=== PATIENT | male | born 1975 | race Caucasian/White ===

== ENCOUNTER 2018-09-08 15:14 | Emergency (ER) | payer SELFPAY ==
[~2018-09-08] VITALS: Ht 188 cm; Wt 124.3 kg
[~2018-09-08 15:14] MED LIST: AZTH250C PO; BENZ100C18 PO; CEFD300C3 PO; CYCL10TA9 PO; HYDR-3714 PO; METH4TAB PO; NAPR-243 PO; RT-ALBUINH IH; TRM50T PO
--- OUTSIDE RECORDS SUMMARY | 2018-09-08 15:19 | XMS REPORT | Continuity of Care Document ---
Author Author [facility] Address Unknown Phone Unavailable Allergies Active Description Code Type Severity Reaction Onset Reported/Identified Relationship to Patient Clinical Status Yes Penicillins Drug Allergy N/A N/A 07/23/2013 Yes Penicillins [id number] Drug Allergy Unknown N/A 12/18/2013 Medications There is no data. Problems Date Dx Coded Attending Type Code Diagnosis Diagnosed By 07/23/2013 CHINA COHEN DO 338.29 PAIN - CHRONIC 07/23/2013 CHINA COHEN DO 796.2 ELEVATED BLOOD PRESSURE READING WITHOUT DIAGNOSIS OF HYPERTENSION 07/23/2013 ALICE ROMERO MD 338.29 PAIN - CHRONIC 07/23/2013 ALICE ROMERO MD 796.2 ELEVATED BLOOD PRESSURE READING WITHOUT DIAGNOSIS OF HYPERTENSION 07/23/2013 ALICE ROMERO MD 338.29 PAIN - CHRONIC 07/23/2013 ALICE ROMERO MD 796.2 ELEVATED BLOOD PRESSURE READING WITHOUT DIAGNOSIS OF HYPERTENSION 07/23/2013 CHINA COHEN DO 338.29 PAIN - CHRONIC 07/23/2013 CHINA COHEN DO 796.2 ELEVATED BLOOD PRESSURE READING WITHOUT DIAGNOSIS OF HYPERTENSION 09/10/2013 ALICE ROMERO MD N 723.1 PAIN NECK 09/10/2013 ALICE ROMERO MD 786.2 COUGH 09/10/2013 CHINA COHEN DO 723.1 PAIN NECK 09/10/2013 CHINA COHEN DO 786.2 COUGH 12/18/2013 KRIS MURDOCK MD Ot 288.60 LEUKOCYTOSIS, UNSPECIFIED 12/18/2013 KRIS MURDOCK MD Ot 346.90 MIGRAINE UNSPECIFIED W/O INTRACT MGRN W/ 12/18/2013 KRIS MURDOCK MD Ot 462 ACUTE PHARYNGITIS 12/18/2013 KRIS MURDOCK MD Ot 784.0 HEADACHE 02/03/2014 EMI PICHARDO DO Ot 724.2 LUMBAGO 02/03/2014 EMI PICHARDO DO Ot 724.3 SCIATICA 12/05/2015 EMI PICHARDO DO Ot F12.10 CANNABIS ABUSE, UNCOMPLICATED 12/05/2015 EMI PICHARDO DO Ot F17.210 NICOTINE DEPENDENCE, CIGARETTES, UNCOMPL 12/05/2015 EMI PICHARDO DO Ot J40 BRONCHITIS, NOT SPECIFIED ACUTE OR CH 12/05/2015 EMI PICHARDO DO Ot R91.8 OTHER NONSPECIFIC ABNORMAL FINDING OF MILADIS 12/06/2015 EMI PICHARDO DO Ot F12.10 12/06/2015 EMI PICHARDO DO Ot F17.210 12/06/2015 EMI PICHARDO DO Ot J40 12/06/2015 EMI PICHARDO DO Ot R91.8 02/23/2016 ALICE ROMERO MD Ot 786.05 SHORTNESS OF BREATH 02/23/2016 CORINA CLAYTON MD Ot 721.3 LUMBOSACRAL SPONDYLOSIS 02/23/2016 CORINA CLAYTON MD Ot 722.83 POSTLAMINECT SYND-LUMBAR Procedures Code Description [place] [address] ROUTINE VENIPUNCTURE 09/10/2013 60535 XRAY CERVICAL SPINE, 2 OR 3 VIEWS 09/10/2013 35049 XRAY THORACIC SPINE 2 VIEWS 09/10/2013 88716 LIPID PANEL 09/10/2013 02093 URINE DRUG SCREEN (IN-HOUSE ) 09/10/2013 99313 PULMONARY FUNCTION TEST 11/18/2013 Results There is no data. Encounters ACCT No. Visit Date/Time Discharge Status Pt. Type Provider Facility Loc./Unit Complaint [id number] 11/18/2013 08:50:00 11/18/2013 23:59:59 CLS Outpatient CHINA COHEN DO [id number] 09/10/2013 08:37:00 09/10/2013 23:59:59 CLS Outpatient ALICE ROMERO MD [id number] 08/19/2013 10:48:00 08/19/2013 23:59:59 CLS Outpatient ALICE ROMERO MD [id number] 07/23/2013 11:04:00 07/23/2013 23:59:59 CLS Outpatient CHINA COHEN DO [id number] 10/29/2017 12:08:00 10/29/2017 23:59:59 CLS Preadmit GUILHERME AMANDA, LYNN De Oliveira [facility] RAD SUPERIOR GLENOID LABRUM LESION OF RIGHT SHOULDER [id number] 12/05/2015 09:57:00 12/05/2015 12:24:00 DIS Emergency EMI PICHARDO DO [facility] ER CHEST PAIN [id number] 05/31/2014 08:52:00 05/31/2014 23:59:59 CLS Outpatient FORREST AMANDA, CORINA Herndon [facility] RAD [id number] 02/03/2014 12:12:00 02/03/2014 18:13:00 DIS Emergency DUNLAP EMI MCCRACKEN [facility] ER [id number] 12/18/2013 05:51:00 12/18/2013 07:30:00 DIS Emergency MATHIEU AMANDA, KRIS Carey [facility] ER [id number] 12/02/2013 09:30:00 12/02/2013 23:59:59 CLS Outpatient HEATHER AMANDA, ALICE Marinelli [facility] RT
[2018-09-08 15:32] LABS: BASOPHILS % (AUTO) 0 % (0-10); EOSINOPHILS # (AUTO) 0.1 10^3/uL (0.0-0.3); EOSINOPHILS % (AUTO) 1 % (0-10); HEMATOCRIT 44 % (40-54); HEMOGLOBIN 14.7 G/DL (13.3-17.7); LYMPHOCYTES # (AUTO) 3.4 X 10^3 (1.0-4.0); LYMPHOCYTES % (AUTO) 33 % (12-44); MEAN CORPUSCULAR HEMOGLOBIN 30 PG (25-34); MEAN CORPUSCULAR HGB CONC 34 G/DL (32-36); MEAN CORPUSCULAR VOLUME 88 FL (80-99); MEAN PLATELET VOLUME 10.5 FL (7.4-10.4); MONOCYTES # (AUTO) 0.9 X 10^3 (0.0-1.0); MONOCYTES % (AUTO) 9 % (0-12); NEUTROPHILS # (AUTO) 5.8 X 10^3 (1.8-7.8); NEUTROPHILS % (AUTO) 56 % (42-75); PLATELET COUNT 330 10^3/uL (130-400); RED BLOOD COUNT 4.95 10^6/uL (4.35-5.85); RED CELL DISTRIBUTION WIDTH 14.4 % (10.0-14.5); WHITE BLOOD COUNT 10.3 10^3/uL (4.3-11.0)
--- NOTE | 2018-09-08 15:45 | Diagnostic Imaging Report ---
INDICATION: Coughing and chest pain. TIME OF EXAMINATION: 4:01 PM. COMPARISON: Correlation is made with the prior study of 12/05/2015. FINDINGS: The heart size is normal. The pulmonary vascularity is unremarkable. The lungs are clear. No infiltrate, effusion, or pneumothorax is detected. IMPRESSION: No acute cardiopulmonary process is detected. Dictated by: Dictated on workstation # [id number]
[2018-09-08 16:00] LABS: ALANINE AMINOTRANSFERASE 21 U/L (0-55); ALBUMIN 4.4 GM/DL (3.2-4.5); ALKALINE PHOSPHATASE 110 U/L (40-136); BILIRUBIN,TOTAL 0.4 MG/DL (0.1-1.0); BUN/CREATININE RATIO 11; CALCIUM 10.1 MG/DL (8.5-10.1); CARBON DIOXIDE 23 MMOL/L (21-32); CHLORIDE 107 MMOL/L (98-107); CREATININE SERUM 0.94 MG/DL (0.60-1.30); GFR ESTIMATED > 60; GLUCOSE 89 MG/DL (70-105); MAGNESIUM 2.5 MG/DL (1.8-2.4); POTASSIUM 4.1 MMOL/L (3.6-5.0); SODIUM 142 MMOL/L (135-145); TOTAL PROTEIN 7.9 GM/DL (6.4-8.2)
[2018-09-08] MEDS ORDERED: LORazepam INJ 2 MG/ML (ATIVAN) VIAL IVP PRN (16:15)
--- NOTE | 2018-09-08 16:20 | ED Respiratory ---
General Chief Complaint: Respiratory Problems Stated Complaint: SOB Nursing Triage Note: PT ARRIVED PER [facility], PT CO OF SOB AND HX OF ASTHMA. PT PICKED UP AT [facility]. PT CO OF SOA FOR 1 WEEK HAS PROD COUGH. IV #[address] W NS BY EMS INFUSING, PT RECIEVED 20MG OF DECADRON IV BY EMS Source: patient Exam Limitations: no limitations History of Present Illness Date Seen by Provider: Sep 08, 2018 Time Seen by Provider: 15:25 Initial Comments Patient is a 43-year-old male who was brought to the emergency room by [facility]. They were called to the [facility] urgent care for shortness of breath. He received a albuterol treatment at the clinic and 20 mg of IV Decadron in route to the emergency room. On arrival he is clear to auscultation. He reports that he's had a cough and congestion for the past 2 weeks is causing shortness of breath. He is in no respiratory distress on arrival to the emergency room. Timing/Duration: week (2) Prior Episodes/Possible Cause: no prior episodes Modifying Factors: Improves With Albuterol Nebulizer Associated Symptoms: cough, fever/chills, nasal congestion, nasal drainage, shortness of breath Allergies and Home Medications Allergies Coded Allergies: Penicillins (Unverified Allergy, Unknown, 12/18/13) Home Medications Albuterol Sulfate 8.5 Gm Hfa.aer.ad, 2 PUFF IH Q4H Prescribed by: EMI PICHARDO on 12/05/15 1200 Azithromycin 250 Mg Tablet, 250 MG PO UD TAKE 2 TABLETS TODAY, THEN TAKE 1 TABLET DAILY FOR 4 MORE DAYS Prescribed by: MICHAELA DOLL on 09/08/18 1635 Benzonatate 100 Mg Capsule, 1-2 TAB PO TID Prescribed by: EMI PICHARDO on 12/05/15 1200 Cefdinir 300 Mg Capsule, 300 MG PO BID Prescribed by: EMI PICHARDO on 12/05/15 1200 Methylprednisolone 4 Mg Tab.ds.pk, 4 MG PO UD Prescribed by: EMI PICHARDO on 12/05/15 1200 Promethazine HCl/Codeine 5 Ml Syrup, 5 ML PO Q4H PRN for COUGH Prescribed by: MICHAELA DOLL on 09/08/18 1635 Patient Home Medication List Home Medication List Reviewed: Yes Review of Systems Review of Systems Constitutional: no symptoms reported, see HPI Respiratory: see HPI, cough, short of breath All Other Systems Reviewed Negative Unless Noted: Yes Past Zrkljkw-Iayizr-Yrbzvr Hx Past Med/Social Hx: Reviewed Nursing Past Med/Soc Hx Patient Social History Alcohol Use: Denies Use Recreational Drug Use: Yes (POT) Smoking Status: Current Everyday Smoker Type Used: Cigarettes Recent Foreign Travel: No Contact w/Someone Who Travel: No Recent Infectious Disease Expo: No Recent Hopitalizations: No Past Medical History Surgeries: Yes (BACK SURGERY X 2, HERNIA REPAIR CHILD) Abdominal, Orthopedic Respiratory: Yes COPD Cardiac: No Neurological: No Reproductive Disorders: No Sexually Transmitted Disease: No Gastrointestinal: No Musculoskeletal: No Endocrine: No Cancer: No Psychosocial: No Integumentary: No Blood Disorders: No Family Medical History Reviewed Nursing Family Hx Physical Exam Vital Signs - First Documented 09/08/18 15:19 Temp 98.3 Pulse 71 Resp 40 B/P (MAP) 126/83 (97) Pulse Ox 100 O2 Delivery Room Air Capillary Refill : Less Than 3 Seconds Height: 6'2.00" Weight: 274lbs. oz. 124.420405al; 34.02 BMI Method:Stated General Appearance: WD/WN, no apparent distress Eyes: Bilateral Eye Normal Inspection, Bilateral Eye PERRL, Bilateral Eye EOMI HEENT: PERRL/EOMI, normal ENT inspection, TMs normal, pharynx normal Respiratory: chest non-tender, lungs clear, normal breath sounds, no respiratory distress, no accessory muscle use Cardiovascular: normal peripheral pulses, regular rate, rhythm, no edema, no gallop, no JVD, no murmur Gastrointestinal: normal bowel sounds, non tender, soft, no organomegaly, no pulsatile mass Extremities: normal capillary refill Neurologic/Psychiatric: alert, normal mood/affect, oriented x 3 Skin: normal color, warm/dry Progress/Results/Core Measures Suspected Sepsis Recent Fever Within 48 Hours: No Infection Criteria Present: None New/Unexplained Altered Menta: No Sepsis Screen: No Definite Risk SIRS Temperature:98.3 Pulse: 71 Respiratory Rate: 40 Laboratory Tests 09/08/18 15:19: White Blood Count 10.3 Blood Pressure 126 /83 Mean: 97 Laboratory Tests 09/08/18 15:19: Creatinine 0.94, Platelet Count 330, Total Bilirubin 0.4 Results/Orders Lab Results Laboratory Tests Test 09/08/18 15:19 Range/Units White Blood Count 10.3 4.3-11.0 10^3/uL Red Blood Count 4.95 4.35-5.85 10^6/uL Hemoglobin 14.7 13.3-17.7 G/DL Hematocrit 44 40-54 % Mean Corpuscular Volume 88 80-99 FL Mean Corpuscular Hemoglobin 30 25-34 PG Mean Corpuscular Hemoglobin Concent 34 32-36 G/DL Red Cell Distribution Width 14.4 10.0-14.5 % Platelet Count 330 130-400 10^3/uL Mean Platelet Volume 10.5 H 7.4-10.4 FL Neutrophils (%) (Auto) 56 42-75 % Lymphocytes (%) (Auto) 33 12-44 % Monocytes (%) (Auto) 9 0-12 % Eosinophils (%) (Auto) 1 0-10 % Basophils (%) (Auto) 0 0-10 % Neutrophils # (Auto) 5.8 1.8-7.8 X 10^3 Lymphocytes # (Auto) 3.4 1.0-4.0 X 10^3 Monocytes # (Auto) 0.9 0.0-1.0 X 10^3 Eosinophils # (Auto) 0.1 0.0-0.3 10^3/uL Basophils # (Auto) 0.0 0.0-0.1 10^3/uL Sodium Level 142 135-145 MMOL/L Potassium Level 4.1 3.6-5.0 MMOL/L Chloride Level 107 98-107 MMOL/L Carbon Dioxide Level 23 21-32 MMOL/L Anion Gap 12 5-14 MMOL/L Blood Urea Nitrogen 10 7-18 MG/DL Creatinine 0.94 0.60-1.30 MG/DL Estimat Glomerular Filtration Rate > 60 BUN/Creatinine Ratio 11 Glucose Level 89 70-105 MG/DL Calcium Level 10.1 8.5-10.1 MG/DL Corrected Calcium 9.8 8.5-10.1 MG/DL Magnesium Level 2.5 H 1.8-2.4 MG/DL Total Bilirubin 0.4 0.1-1.0 MG/DL Aspartate Amino Transf (AST/SGOT) 25 5-34 U/L Alanine Aminotransferase (ALT/SGPT) 21 0-55 U/L Alkaline Phosphatase 110 40-136 U/L Troponin I < 0.30 <0.30 NG/ML Total Protein 7.9 6.4-8.2 GM/DL Albumin 4.4 3.2-4.5 GM/DL My Orders Orders - MICHAELA DOLL Cbc With Automated Diff (09/08/18 15:24) Magnesium (09/08/18 15:24) Ekg Tracing (09/08/18 15:24) Cardiac Profile 1 (09/08/18 15:24) Comprehensive Metabolic Panel (09/08/18 15:24) O2 (09/08/18 15:24) Monitor-Rhythm Ecg Trace Only (09/08/18 15:24) Saline Lock/Iv-Start (09/08/18 15:24) Chest Pa/Lat (2 View) (09/08/18 15:24) Lorazepam Injection (Ativan Injection) (09/08/18 16:15) Medications Given in ED Vital Signs/I&O 09/08/18 09/08/18 15:19 17:11 Temp 98.3 98.3 Pulse 71 71 Resp 40 40 B/P (MAP) 126/83 (97) 133/87 (102) Pulse Ox 100 100 O2 Delivery Room Air Capillary Refill : Less Than 3 Seconds Blood Pressure Mean: 97 Progress Note : Time: 16:19 Progress Note Have seen and evaluated the patient. He is refusing to have his nose swab for influenza. He has became very anxious and I believe that this is due to the 20 mg of Decadron that were given IV. Ativan has been ordered at this time to hopefully help him relax. 1638: Patient is much more relaxed after Ativan. I will be treating him for bronchitis. I will not be giving him any more steroids at this time, he will be treated with azithromycin and cough medicine. He agrees with plans of care, plans for discharge, return precautions were given. Diagnostic Imaging Diagonstic Imaging: Xray Plain Films/CT/US/NM/MRI: chest Comments NAME: LOLISANNRULA L MED REC#: [id number] PT STATUS: REG ER : 1975 PHYSICIAN: MICHAELA DOLL ADMIT DATE: 09/08/18/ER Signed Date of Exam:09/08/18 CHEST PA/LAT (2 VIEW) INDICATION: Coughing and chest pain. TIME OF EXAMINATION: 4:01 PM. COMPARISON: Correlation is made with the prior study of 12/05/2015. FINDINGS: The heart size is normal. The pulmonary vascularity is unremarkable. The lungs are clear. No infiltrate, effusion, or pneumothorax is detected. IMPRESSION: No acute cardiopulmonary process is detected. Dictated by: Dictated on workstation # [id number] Dict: 09/08/18 1540 Trans: 09/08/18 1546 [id number] Interpreted by: ORLANDO DAI MD Electronically signed by: ORLANDO DAI MD 09/08/18 1546 Reviewed: Reviewed by Me Departure Impression Primary Impression: Bronchitis Disposition: HOME, SELF-CARE Condition: Stable/Unchanged Departure-Patient Inst. Decision time for Depature: 16:33 Referrals: NO,LOCAL PHYSICIAN (PCP/Family) Primary Care Physician Patient Instructions: Acute Bronchitis, Adult (DC) Add. Discharge Instructions: Take medication as directed. Follow-up with your primary care provider within 1 week for recheck. Return back to the emergency room for any worsening symptoms or concerns as needed. All discharge instructions reviewed with patient and/or family. Voiced understanding. Scripts Azithromycin (Zithromax) 250 Mg Tablet 250 MG PO UD, #6 TAB TAKE 2 TABLETS TODAY, THEN TAKE 1 TABLET DAILY FOR 4 MORE DAYS Prov: MICHAELA DOLL 09/08/18 Promethazine HCl/Codeine (Prometh-Codein 6.25-10 mg/5 ml) 5 Ml Syrup 5 ML PO Q4H PRN for COUGH, #60 ML Prov: MICHAELA DOLL 09/08/18 MICHAELA DOLL Sep 08, 2018 16:20
[2018-09-08] MEDS ORDERED: AZIT250T PO (16:35)
[2018-09-08] MEDS ORDERED: PROM5SYR PO (16:35)
[2018-09-08 17:11] VITALS: BP 133/87
== END 2018-09-08 17:11 | disposition home or self-care (01) ==
LOC: EDUNIT# 15:14 → ER 15:15
DX: J44.9 Chronic obstructive pulmonary disease, unspecified (principal); R07.9 Chest pain, unspecified; F12.10 Cannabis abuse, uncomplicated; F17.210 Nicotine dependence, cigarettes, uncomplicated; Z88.0 Allergy status to penicillin; Z98.890 Other specified postprocedural states; Z79.51 Long term (current) use of inhaled steroids; Z79.52 Long term (current) use of systemic steroids
CPT/HCPCS: 36415; 71046; 80053; 83735; 84484; 85025; 93005; 93041